=== PATIENT | female | born 1985 | race Native Hawaiian/Other Pacific Islander ===

== ENCOUNTER 2018-03-03 17:22 | Emergency (ER) | payer BC, OTHER ==
[2018-03-03 17:22] VITALS: BMI 40.7
[2018-03-03 17:28] VITALS: RESP 18; O2SAT 99
--- NOTE | 2018-03-03 17:53 | ED PDOC ---
Arrival/HPI - General Chief Complaint: Dental Pain Historian: Patient - History of Present Illness Narrative History of Present Illness (Text): 03/03/18 17:57 32yo female with no pmhx who present to ED with complaint of left sided lower lateral gum pain/swelling x 2days. Patient states she had a root canal in the same gum years ago and it became infected. states she saw her PMD who advised her to f/u with a Dental surgeon. Notes that the dentist states she needs treatment of the infection because anything can be done. Did not take any medication. states swelling of the area started this morning. Denies fever, chills, nausea, vomiting, any other complaint. Past Medical History - Provider Review Nursing Documentation Reviewed: Yes - Cardiac Hx Cardiac Disorders: No - Pulmonary Hx Respiratory Disorders: No - Neurological Hx Neurological Disorder: No - HEENT Hx HEENT Disorder: No - Renal Hx Renal Disorder: No - Endocrine/Metabolic Hx Endocrine Disorders: No - Hematological/Oncological Hx Blood Disorders: No - Integumentary Hx Dermatological Disorder: No - Musculoskeletal/Rheumatological Hx Musculoskeletal Disorders: Yes Other/Comment: Herniated disc & Bulging Disc (Pt unable to remember location of injury) - Gastrointestinal Hx Gastrointestinal Disorders: No - Genitourinary/Gynecological Hx Genitourinary Disorders: No - Psychiatric Hx Psychophysiologic Disorder: No Hx Substance Use: No - Surgical History Hx Section: Yes Family/Social History - Physician Review Nursing Documentation Reviewed: Yes Family/Social History: Unknown Family HX Smoking Status: Never Smoked Hx Alcohol Use: No Hx Substance Use: No Allergies/Home Meds Allergies/Adverse Reactions: Allergies No Known Allergies Allergy (Verified 03/03/18 17:28) Home Medications: Home Meds Medication Instructions Recorded Confirmed buPROPion [Wellbutrin] 75 mg PO BID 03/03/18 03/03/18 Review of Systems - Physician Review All systems were reviewed & negative as marked: Yes - Review of Systems Constitutional: Normal Eyes: Normal ENT: Normal Respiratory: Normal Cardiovascular: Normal Gastrointestinal: Normal Genitourinary Female: Normal Musculoskeletal: Normal Skin: Normal Neurological: Normal Endocrine: Normal Hemo/Lymphatic: Normal Psychiatric: Normal Physical Exam Vital Signs Reviewed: Yes Vital Signs Temp Pulse Resp BP Pulse Ox 03/03/18 17:26 98.9 F 70 18 142/87 99 Temperature: Afebrile Blood Pressure: Normal Pulse: Regular Respiratory Rate: Normal Appearance: Positive for: Well-Appearing, Non-Toxic, Comfortable Pain Distress: None Mental Status: Positive for: Alert and Oriented X 3 - Systems Exam Head: Present: Atraumatic, Normocephalic Pupils: Present: PERRL Extroacular Muscles: Present: EOMI Conjunctiva: Present: Normal Mouth: Present: Moist Mucous Membranes. No: Normal Teeth (Left sided lower lateral gum swelling noted with no tooth) Neck: Present: Normal Range of Motion Respiratory/Chest: Present: Clear to Auscultation, Good Air Exchange. No: Respiratory Distress, Accessory Muscle Use Cardiovascular: Present: Regular Rate and Rhythm, Normal S1, S2. No: Murmurs Abdomen: No: Tenderness, Distention, Peritoneal Signs Back: Present: Normal Inspection Upper Extremity: Present: Normal Inspection. No: Cyanosis, Edema Lower Extremity: Present: Normal Inspection. No: Edema Neurological: Present: GCS=15, CN II-XII Intact, Speech Normal Skin: Present: Warm, Dry, Normal Color. No: Rashes Psychiatric: Present: Alert, Oriented x 3, Normal Insight, Normal Concentration Medical Decision Making ED Course and Treatment: 03/03/18 18:41 PT presented to ED for stated history. she was afebrile and in no distress. she was treated with Amoxicillin and Toradol for her dental abscess. she have a dentist and was referred to a dental surgeon by the dentist. She was DC home with amox, tramadol and ibuprofen. Advised to f/u with a dental surgeon. - Medication Orders Current Medication Orders: Amoxicillin (Amoxil 500 Mg Cap) 500 mg PO STAT STA; Protocol Stop: 03/03/18 17:51 Ketorolac Tromethamine (Toradol) 60 mg IM STAT STA Stop: 03/03/18 17:51 Disposition/Present on Arrival - Present on Arrival Any Indicators Present on Arrival: No History of DVT/PE: No History of Uncontrolled Diabetes: No Urinary Catheter: No History of Decub. Ulcer: No History Surgical Site Infection Following: None - Disposition Have Diagnosis and Disposition been Completed?: Yes Diagnosis: Dental abscess Disposition: HOME/ ROUTINE Disposition Time: 18:05 Patient Plan: Discharge Condition: STABLE Discharge Instructions (ExitCare): Tooth Abscess (DC) Additional Instructions: Follow up with your dentist Return to ED for any new or worsening symptoms Prescriptions: RX: Amoxicillin 875 mg PO TID #21 tablet RX: Ibuprofen [Motrin Tab] 600 mg PO Q6 #15 tab RX: traMADol [Ultram] 50 mg PO Q6 #7 tab Referrals: Valencia Pennington MD [Medical Doctor] - Follow up with primary Forms: [employer] (Danish)
[2018-03-03 18:36] VITALS: BP 136/80; PULSE 72; TEMP 98.4
== END 2018-03-03 18:35 | disposition home or self-care (01) ==
LOC: ED 17:22
DX: K04.7 Periapical abscess without sinus (principal)
CPT/HCPCS: 96372; 99282; J1885